=== PATIENT | female | born 2000 | race Caucasian/White ===

== ENCOUNTER → 2023-05-04 11:57 | Outpatient (REF) | payer OTHER, SELFPAY | LOC: RAD 11:57 | PROVIDERS: ATTENDING PHYSICIAN Physician Assistant Medical | DX: M25.572 Pain in left ankle and joints of left foot (principal) | CPT/HCPCS: 73610 ==

== ENCOUNTER → 2023-07-15 13:21 | Outpatient (REF) | payer OTHER, SELFPAY | LOC: RCS 13:21 | PROVIDERS: ATTENDING PHYSICIAN Nurse Practitioner Family; FAMILY PHYSICIAN Family Medicine | DX: R00.2 Palpitations (principal) | CPT/HCPCS: 93225; 93226 ==

== ENCOUNTER → 2023-07-31 13:17 | Outpatient (REF) | payer OTHER, SELFPAY | LOC: RAD 13:17 | PROVIDERS: ATTENDING PHYSICIAN Nurse Practitioner Family | DX: R76.8 Other specified abnormal immunological findings in serum (principal) | CPT/HCPCS: 76536 ==

== ENCOUNTER 2023-10-23 08:02 | Emergency (ER) | payer OTHER, SELFPAY ==
[2023-10-23 08:04] VITALS: BP 155/98
[2023-10-23 08:21] VITALS: BMI 42.0
[2023-10-23] MEDS: NSS 1000 IV (08:37)
[2023-10-23] MEDS: BENADRYL 25 MG IV (08:38)
[2023-10-23] MEDS: REGLAN 10 MG IV (08:40)
[2023-10-23] MEDS: TORADOL 30 MG IV (08:41)
--- NOTE | 2023-10-23 08:41 | ED.GENMED ---
History of Present Illness
General
Chief Complaint: Headache
Source: patient
Time Seen by Provider: 10/23/23 08:24
Travel History
Have you had any contact with someone who has COVID-19?: No
Do you have any symptoms of coronavirus? Fever > 100 degrees, chills, cough, shortness of breath, sore throat, loss of taste or smell, muscle aches, or headache?: No
History of Present Illness
History of Present Illness:
23-year-old female with past medical history of migraines presenting the emergency department for evaluation of migraine headache that started over the last 48 hours. Unrelieved with OTC medications as well as her prescriptive migraine abortive
therapy. No fevers or infectious symptoms. Headache is bifrontal, constant, nonradiating and typical of her usual migraine.
Past History
Past History
ED Past Medical History: Asthma and Other (Migraines)
ED Past Surgical History: Orthopedic and Other
Social History
Tobacco: Non-smoker
Alcohol: None
Drug: None
Personal: Single
Living: with family
Employment: Employed
Review of Systems
Review of Systems
All Other Systems: ROS reviewed and negative except as documented in HPI and ROS
Phy Exam
Physical Exam
Physical Exam:
GENERAL: Alert , in no apparent distress
EYE: conjunctiva clear Pupils 3 mm bilateral regular
Head: Normocephalic atraumatic
NECK: Supple,
ENT: mmm.
LUNGS: no acute respiratory distress
NEUROLOGICAL: Alert and oriented, ambulating with steady gait
SKIN: Warm and dry, skin intact.
MUSCULOSKELETAL: well perfused.
PSYCH: Normal and appropriate interaction.
Scores
Heart Failure Risk
Heart Failure Risk Score: Not Applicable
Heart Score for Chest Pain Patients
STEMI patient?: Not applicable
Withdrawal Assessment of Alcohol
Withdrawal Assessment Completed?: Not applicable
Course
Orders/Labs/Results
Orders:
Orders
10/23/23 08:15
Test Result ONCE
10/23/23 08:28
0.9% Sodium Chloride 1000 ml [Nss] 1,000 ml IV BOLUS
Diphenhydramine [Benadryl] 25 mg IV NOW STA
Ketorolac [Toradol] 30 mg IV NOW STA
Metoclopramide [Reglan] 10 mg IV NOW STA
10/23/23 08:25
10/23/23 08:25
Vital Signs
Initial and Last Documented VS:
Initial Vital Signs
Temp Pulse Resp BP Pulse Ox
97.9 F 98 18 155/98 100
10/23/23 08:04 10/23/23 08:04 10/23/23 08:04 10/23/23 08:04 10/23/23 08:04
Last Documented Vital Signs
Temp Pulse Resp BP Pulse Ox
97.9 F 90 18 117/78 98
10/23/23 08:04 10/23/23 09:52 10/23/23 09:52 10/23/23 09:10 10/23/23 09:52
MDM/Problems Addressed
Differential Diagnosis Includes:
Migraine headache, tension headache, no concern for intracranial bleeding
MDM/Problems Addressed:
23-year-old female presenting to the emergency department for evaluation of migraine headache, history of similar in the past. Has been seen in this ER for migraine headache before noting relief with medications and IV fluids. No signs or symptoms
of infectious etiology. No acute or focal neurologic symptoms. Based off record review she has done well with Reglan, Benadryl and Toradol in the past. Will trial this medication and reassess following.
Chronic conditions affecting care: Neurological disorder
Acute Exacerbation and/or Progression of Chronic Illness: Neurological disorder (Migraine headache)
*Pulse Oximetry
Patient hypoxic: no
*Critical Care Note
Total Time (30-74mins, 75-104mins- exclusive of procedures): Not Applicable
Data Reviewed
Review of Other/Old Records Reveals: Records
Patient Management
Escalation/DeEscalation of care consider admission/obs:
Patient reporting full resolution of symptoms and would like to be discharged home. Aware of return precautions to ER.
ED Attending Note
-
Portions of this chart may have been created with voice recognition software.� Occasional wrong word or��sound alike� substitutions may have occurred due to the inherent limitations of voice recognition software.
Discharge Plan
Departure
Patient Disposition: Home (Routine Discharge)
Date of Disposition: 10/23/23
Time of Disposition: 09:15
Patient with high blood pressure during this ER visit?: Yes
Discharge Problem:
Headache, migraine
Instructions: Migraines (DC)
Prescriptions:
No Action
albuterol sulfate 1 PUFF HFA aerosol inhaler
1 puff inhalation R Q4HPRN PRN (Reason: asthma)
fexofenadine [Madyson] 180 MG tablet
180 mg PO DAILY
fluticasone propionate 1 SPRAY spray,suspension
2 spray intranasal DAILY
mometasone [Asmanex HFA] 13 GM HFA aerosol inhaler
2 puff inhalation BID
ondansetron 4 MG tablet,disintegrating
4 mg PO Q8HPRN PRN (Reason: nausea) Qty: 5 1RF
hydrocodone-acetaminophen 15 ML solution
15 - 30 ml PO Q4HPRN PRN (Reason: pain) Qty: 12 0RF
ondansetron 4 mg tablet,disintegrating
4 mg PO DAILY PRN (Reason: nausea and vomiting) Qty: 10 0RF
hydrocodone-acetaminophen 5-325 mg tablet
1 tab PO Q6H PRN (Reason: pain) Qty: 8 0RF
Referrals:
Fiona Oropeza MD [Family Provider] -
Interventions
Interventions:
*Risk Screen - Suicide Last Done: 10/23/23 08:11
*General Assessment Last Done: 10/23/23 08:21
*Neglect/Abuse Screening Last Done: 10/23/23 08:11
ED- Fall Risk Assessment Last Done: 10/23/23 09:55
*ED COVID-19 Vaccine History Last Done: 10/23/23 08:11
*Nursing Disposition Last Done: 10/23/23 09:55
ED- Neurological Assessment Last Done: 10/23/23 08:21
Discharge Date and Time
Discharge Date/Time: 10/23/23 09:56
Print Language: BELARUSIAN
[2023-10-23 09:10] VITALS: BP 117/78
== END 2023-10-23 09:56 | disposition home or self-care (01) ==
LOC: EMR 08:02
PROVIDERS: EMERGENCY PHYSICIAN Emergency Medicine; FAMILY PHYSICIAN Family Medicine
DX: G43.909 Migraine, unspecified, not intractable, without status migrainosus (principal); J45.909 Unspecified asthma, uncomplicated
CPT/HCPCS: 99282; 96374; 96375; 96361

== ENCOUNTER 2024-07-28 21:02 | Emergency (ER) | payer OTHER, SELFPAY ==
[2024-07-28 21:06] VITALS: BP 143/93
[2024-07-28 21:29] LABS: Urine Albumin Negative (Neg - Trace); Urine Bilirubin Negative (Negative); Urine Character Cloudy (Clear); Urine Color Yellow; Urine Glucose Negative (Negative); Urine Ketone Negative (Negative); Urine Leukocyte Negative (Negative); Urine Nitrite Negative (Negative); Urine Occult Blood 2+ (Negative); Urine Specific Gravity 1.015 (<1.030); Urine Urobilinogen Negative (Neg - 1+)
[2024-07-28 21:36] LABS: % Basophils 0.4 % (0-2); % Eosinophils 0.5 % (0-6); % Immature Granulocytes 0.4 % (0-0.5); % Lymphocytes 23.7 % (20.5-51.1); Absolute Monocytes 0.7 10^3/uL (0.1-0.6); Absolute Neutrophils 5.7 10^3/uL (1.4-6.5); Hematocrit 42.8 % (37.0-47.0); Hemoglobin 14.8 g/dL (12.0-16.0); Mean Corp Hgb Conc. 34.6 g/dL (33.0-37.0); Mean Corpuscular Hgb 30.3 pg (27.0-31.0); Mean Corpuscular Volume 87.5 fL (81.0-99.0); Mean Platelet Volume 9.4 fL (7.4-10.4); Nucleated Red Blood Cells % 0 %; Platelet Count 291 10^3/uL (130-400); Red Blood Cell Count 4.89 10^6/uL (4.20-5.40); Red Cell Dist. Width 12.3 % (11.5-14.5); White Blood Cell Count 8.5 10^3/uL (4.8-10.8)
[2024-07-28 21:40] LABS: Urine Amorphous Seen; Urine Squamous Cell 0-2 /LPF (Few); Urine White Cell 0-2 /HPF (0-5)
[2024-07-28 21:41] LABS: HCG, Serum Qualitative Screen Negative; Urine Bacteria Many (Negative)
[2024-07-28 21:45] LABS: ALT (SGPT) 14 U/L (0-35); AST (SGOT) 16 U/L (14-36); Albumin 4.4 g/dl (3.5-5.0); Alkaline Phosphatase 109 U/L (38-126); Blood Urea Nitrogen 11 mg/dl (7-17); Calcium 9.2 mg/dl (8.4-10.2); Carbon Dioxide 21 mmol/L (22-30); Chloride 109 mmol/L (98-107); Glucose 98 mg/dl (70-99); Lipase 38 U/L (23-300); Potassium 3.7 mmol/L (3.5-5.1); Sodium 138 mmol/L (135-145); Total Bilirubin 0.4 mg/dl (0.2-1.3); Total Protein 6.9 g/dl (6.3-8.2); eGFR > 60.00
[2024-07-28 21:52] VITALS: BMI 40.2
--- NOTE | 2024-07-28 22:48 | ED.GENMED ---
History of Present Illness
General
Chief Complaint: Abdominal Pain
Source: patient
Exam Limitations: none
Time Seen by Provider: 07/28/24 22:39
Nursing documentation reviewed up to this point in time: agreed with
History of Present Illness
History of Present Illness:
Pleasant 23-year-old female presents to the emergency department with periumbilical and right lower quadrant abdominal pain. Pain began yesterday and has been waxing waning throughout the day today. She did report some nausea without vomiting.
She had a normal bowel movement this morning without issue. She states that she does not get her menses and has not noticed any blood in her urine. Denies fever or chills. She does have a history of irritable bowel syndrome and PCOS, along with
ovarian cysts. She states that this does not feel similar to any of those.
Past History
Past History
ED Past Medical History: Asthma and Other (Migraines)
ED Past Surgical History: Orthopedic and Other
Social History
Tobacco: Non-smoker
Alcohol: None
Drug: None
Personal: Single
Living: with family
Employment: Employed
Review of Systems
Review of Systems
Allergies reviewed?: Yes
All Other Systems: ROS reviewed and negative except as documented in HPI and ROS
ABD/GI: Reports abdominal pain and nausea; Denies vomiting, diarrhea, constipated or bloody stools
Psychiatric: Reports anxiety
Phy Exam
General Physical Exam
General Presentation: well appearing and mild distress
General age: appears stated age
General Skin: warm
General Habitus: normal
General Mental: alert
General Hydration: appears well hydrated
ENT Exam
ENT Exam: EOMI, pharynx normal, neck supple and normocephalic
Eye Exam
Eye Exam: PERRL, cornea clear and conjunctiva normal
Cardiovascular Exam
Cardiovascular Exam: regular rate/rhythm, no edema, no murmur and normal peripheral pulses
Pulmonary Exam
Pulmonary Exam: lungs clear, no respiratory distress, no rales, no crackles, no rhonchi, no stridor, no wheezing and no cough
Gastrointestinal Exam
Gastrointestinal Exam: normal bowel sounds, no organomegaly, non distended and rebound
Palpation: right lower quadrant: Mild tenderness
Neurological Exam
Neurological Exam: alert, oriented x3, no motor deficits and speech normal
Musculoskeletal Exam
Musculoskeletal Exam: full ROM and no edema
Skin Exam
Skin Exam: normal color, warm/dry, no rash and no petechia
Psychiatric Exam
Psychiatric Exam: normal mood/affect
Course
Orders/Labs/Results
Orders:
Orders
07/28/24 21:08
IV Insert/Care/Rem.- Treatment PRN
Test Result ONCE
07/28/24 21:22
Complete Blood Count/With Diff Urgent
Comprehensive Metabolic Panel Urgent
HCG, Serum Qualitative Screen Urgent
Lipase Urgent
Urinalysis Reflex To Culture Urgent
Date Specimen was Collected: 07/28/24
Time Specimen was Collected: 21:08
Urine Microscopic Reflex Cult Urgent
Urine Culture Urgent
BERTIN Source: U
Specimen Description:
Date Specimen was Collected: 07/28/24
Time Specimen was Collected: 21:08
07/28/24 22:48
CT Abd/pelvis W Iv Cont Urgent
Comment:
Reason For Exam: periumbilical and RLQ pain
07/28/24 23:40
Ketorolac [Toradol] 15 mg .ROUTE .STK-MED ONE
Ondansetron Injectable [Zofran] 4 mg .ROUTE .STK-MED ONE
07/28/24 23:41
Ketorolac [Toradol] 15 mg IV NOW STA
Ondansetron Injectable [Zofran] 4 mg IV NOW STA
07/29/24 00:00
0.9% Sodium Chloride 1000 ml [Nss] 1,000 ml IV BOLUS
US Pelvis Only (non-obstetric) Urgent
Reason For Exam: right pelvic pain
Abnormal Lab Results
07/28/24
21:22
Absolute Monos (auto) 0.7 H 10^3/uL
(0.1-0.6)
Chloride 109 H mmol/L
(98-107)
Carbon Dioxide 21 L mmol/L
(22-30)
Ur Occult Blood Reflex 2+ A
(Negative)
Urine RBC 11-15 A /HPF
(0-2)
Urine Bacteria (Reflex) Many A
(Negative)
07/28/24 21:22
07/28/24 21:22
Vital Signs
Initial and Last Documented VS:
Initial Vital Signs
Temp Pulse Resp BP Pulse Ox
97.7 F 116 19 143/93 99
07/28/24 21:06 07/28/24 21:06 07/28/24 21:06 07/28/24 21:06 07/28/24 21:06
Last Documented Vital Signs
Temp Pulse Resp BP Pulse Ox
97.7 F 93 19 146/86 99
07/28/24 21:06 07/28/24 23:45 07/28/24 23:28 07/28/24 23:45 07/28/24 23:45
MDM/Problems Addressed
Differential Diagnosis Includes:
Appendicitis, kidney stone, UTI, pyelonephritis, gastroenteritis
*Pulse Oximetry
Patient hypoxic: no
Patient Management
Social determinants of health affecting care: Living situation and Strong social support
Update Note
Update Note:
CT ABDOMEN/PELVIS WITH CONTRAST
IMPRESSION:
1. Right ovarian cyst measuring 5.3 x 3.5 cm.
2. Fecalized loops of small bowel suggestive of slow transit. No bowel obstruction. Normal gallbladder and appendix.
Incidentals:
-Normal-appearing intrauterine device
- No obstructive uropathy. Again seen is left renal cyst, with likely layering milk of calcium. Harsh kidney.
- No hepatic or pancreatic mass.
- No abdominal aortic aneurysm.
- No acute osseous abnormality.
- No acute abnormality within the visualized lungs.
- No acute abnormality within the visualized soft tissues.
Case finalized on Jul 28 2024 11:47PM ET
ED Attending Note
-
Portions of this chart may have been created with voice recognition software.� Occasional wrong word or��sound alike� substitutions may have occurred due to the inherent limitations of voice recognition software.
Discharge Plan
Departure
Patient with high blood pressure during this ER visit?: Yes
Condition: Good
Discharge Problem:
Ovarian cyst
Instructions: Ovarian Cyst (DC), Abdominal Pain
Prescriptions:
New
diclofenac sodium 75 mg tablet,delayed release (DR/EC)
75 mg PO BID Qty: 10 0RF
No Action
albuterol sulfate 1 PUFF HFA aerosol inhaler
1 puff inhalation R Q4HPRN PRN (Reason: asthma)
fexofenadine [Madyson] 180 MG tablet
180 mg PO DAILY
fluticasone propionate 1 SPRAY spray,suspension
2 spray intranasal DAILY
mometasone [Asmanex HFA] 13 GM HFA aerosol inhaler
2 puff inhalation BID
ondansetron 4 MG tablet,disintegrating
4 mg PO Q8HPRN PRN (Reason: nausea) Qty: 5 1RF
hydrocodone-acetaminophen 15 ML solution
15 - 30 ml PO Q4HPRN PRN (Reason: pain) Qty: 12 0RF
ondansetron 4 mg tablet,disintegrating
4 mg PO DAILY PRN (Reason: nausea and vomiting) Qty: 10 0RF
hydrocodone-acetaminophen 5-325 mg tablet
1 tab PO Q6H PRN (Reason: pain) Qty: 8 0RF
Referrals:
Fiona Oropeza MD [Family Provider] -
Activity Restrictions/Additional Instructions:
It was a pleasure meeting you and taking part in your care. We hope for your continued healing and wellness.
Please read discharge instructions in their entirety. However, they are for general education and may not describe your exact diagnosis at discharge. Information on your ER visit and medical conditions were discussed with you along with appropriate
follow up information...
If indicated, please take your medications as instructed and indicated on discharge paperwork.
Please schedule a follow up appointment as directed. Call to schedule an appointment
Please return to the emergency department with ANY change in, persisting, or worsening of symptoms. If any of your symptoms do not improve, or persist, or become more severe within 6-12 hours, please return to the emergency department for further
care.
Please return to the emergency department if you develop a headache, neck pain/stiffness, fever greater than 100.4F, chest pain, shortness of breath, persistent nausea, vomiting, slurred speech, difficulty walking, numbness/tingling, weakness, signs
of infection or any other symptoms that are worrisome to you.
If you have any questions or concerns please do not hesitate to call the Hospital at or E-mail me directly at [email or web address]
Interventions
Interventions:
*Risk Screen - Suicide Last Done: 07/28/24 21:06
*General Assessment Last Done: 07/28/24 23:25
*Neglect/Abuse Screening Last Done: 07/28/24 21:06
*ED- Fall Risk Assessment Last Done: 07/28/24 21:52
*ED COVID-19 Vaccine History Last Done: 07/28/24 21:52
BZ-Qvqtxz-Wgsvshbmly Assessment Last Done: 07/28/24 21:52
Discharge Date and Time
Print Language: PORTUGUESE
[2024-07-28] MEDS: ZOFRAN 4 MG IV (23:42)
[2024-07-28] MEDS: TORADOL 15 MG IV (23:42)
[2024-07-28 23:45] VITALS: BP 146/86
[2024-07-29] MEDS: NSS 1000 IV
--- NOTE | 2024-07-29 04:29 | DOWNTIME ---
There was a [employer] Client [employer] Setter Downtime on 07/29/2024 from 0100 to 07/30/2023 at 0420 . Downtime documentation of patient's care, including medication administrations, has been reconciled in the electronic record per guidelines. Refer to the
patient's paper chart under the miscellaneous tab to see printed paper medication records and downtime forms.
== END 2024-07-29 02:15 | disposition home or self-care (01) ==
LOC: EMR 21:02
PROVIDERS: Emergency Medicine; EMERGENCY PHYSICIAN Student in an Organized Health Care Education/Training Program; FAMILY PHYSICIAN Family Medicine
DX: R10.2 Pelvic and perineal pain (principal); R10.31 Right lower quadrant pain; R11.0 Nausea; N83.201 Unspecified ovarian cyst, right side; N28.1 Cyst of kidney, acquired; E28.2 Polycystic ovarian syndrome; F41.9 Anxiety disorder, unspecified; J45.909 Unspecified asthma, uncomplicated; G43.909 Migraine, unspecified, not intractable, without status migrainosus; K58.9 Irritable bowel syndrome, unspecified; E05.00 Thyrotoxicosis with diffuse goiter without thyrotoxic crisis or storm; Z91.040 Latex allergy status; Z91.013 Allergy to seafood; Z91.018 Allergy to other foods; Z91.048 Other nonmedicinal substance allergy status
CPT/HCPCS: 99284; 96375; 96361; 96374; 74177; 76856; 80053; 81003; 81015; 83690; 84703; 85025; 87086; Q9967

== ENCOUNTER → 2024-09-23 08:27 | Outpatient (REF) | payer OTHER, SELFPAY | LOC: HWRAD 08:27 | PROVIDERS: ATTENDING PHYSICIAN Nurse Practitioner Family; FAMILY PHYSICIAN Family Medicine | DX: N83.201 Unspecified ovarian cyst, right side (principal) | CPT/HCPCS: 76830; 76856 ==

== ENCOUNTER 2024-11-15 12:53 | Emergency (ER) | payer OTHER, SELFPAY ==
[2024-11-15 13:09] VITALS: BP 128/79
[2024-11-15 13:49] LABS: ALT (SGPT) 24 U/L (0-35); AST (SGOT) 25 U/L (14-36); Albumin 4.2 g/dl (3.5-5.0); Alkaline Phosphatase 107 U/L (38-126); Blood Urea Nitrogen 9 mg/dl (7-17); Calcium 9.3 mg/dl (8.4-10.2); Carbon Dioxide 18 mmol/L (22-30); Chloride 115 mmol/L (98-107); Glucose 107 mg/dl (70-99); Potassium 4.1 mmol/L (3.5-5.1); Sodium 140 mmol/L (135-145); Total Protein 6.8 g/dl (6.3-8.2); eGFR > 60.00
[2024-11-15 17:20] LABS: HCG, Serum Qualitative Screen Negative
--- NOTE | 2024-11-15 17:29 | ED.GENMED ---
History of Present Illness
<Pam Martin PA-C - Last Filed: 11/17/24 06:43>
General
Chief Complaint: Fever
Source: patient
Exam Limitations: none
Time Seen by Provider: 11/15/24 16:03
Nursing documentation reviewed up to this point in time: agreed with
History of Present Illness
History of Present Illness:
24 y/o F
h/o migraines, asthma, PCOS, UTIs
here with fever x 5 days
treated with tylenol/motrin
started on 11/11 with lowr back pain and chills
has had persistent but improving lower back pain and then onset of headache which gets worse when she has fever
last temp was 101 at 12 noon
took tylenol/;motrin which helps
says that on 11/07 she was exposed briefly to a teen patient with meningitits
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
she was around the patient < 5 minutes without N95 and then involve din assisting LP
the patient apparently is doing wlel
had already been on abx for sinus infection
pt doesn' tknow what grew out on the cultures; sounds as if they were neg; ID was involved and decided that none of the staff needed prophylaxis
on 11/12 she went to and they said she had a viral illness, was given ear drops for OE
pt says she no longer is using th eear drops
she has minimal 2/10 headache, no neck stiffness
some myaglais and joitn pain
no rash, no vomiting, no diarrhea, no cough
Past History
<Pam Martin PA-C - Last Filed: 11/17/24 06:43>
Past History
ED Past Medical History: Asthma and Other (Migraines)
ED Past Surgical History: Orthopedic and Other
Social History
Tobacco: Non-smoker
Alcohol: None
Drug: None
Personal: Single
Living: with family
Employment: Employed
Review of Systems
<Pam Martin PA-C - Last Filed: 11/17/24 06:43>
Review of Systems
Allergies reviewed?: Yes
All Other Systems: Not applicable
Phy Exam
<Pam Martin PA-C - Last Filed: 11/17/24 06:43>
Physical Exam
Physical Exam:
GENERAL: Alert , in no apparent distress, well appearing
HEAD: NCAT
EYE: pupils equal and reactive, no nystagmus, minimal photophobia
NECK: Supple,full rom, nontender, neg kernigs, neg brudzinskis
ENT: o/p clr, mmm.
mild pharyngeal erythema
no palatal petechia
Ears clear
CARDIAC: Regular rate and rhythm . no edema
LUNGS: Clear breath sounds bilaterally, no acute respiratory distress, no wheezes/rales/rhonchi
ABDOMEN: Soft, without focal tenderness, no r/g, no cvat
NEUROLOGICAL: Alert and orientedx 4, cn intact, no facial asymmetry, 5/5 strength in UE/LE, sensation intact, romberg neg, ambulates without assistance, neg pronator drift
SKIN: Warm and dry, skin intact.
MUSCULOSKELETAL: No edema, well perfused.
PSYCH: Normal and appropriate interaction.
Course
<Pam Martin PA-C - Last Filed: 11/17/24 06:43>
Orders/Labs/Results
Orders:
Orders
11/15/24 13:19
Comprehensive Metabolic Panel Urgent
HCG, Serum Qualitative Screen Urgent
Comment: ADD ON
Lyme Progressive Urgent
Comment: ADD ON
Monotest Urgent
Comment: ADD ON
11/15/24 16:29
Add On- LAB Urgent
Tests Added?: mono
0.9% Sodium Chloride 1000 ml [Nss] 1,000 ml IV BOLUS
Diphenhydramine [Benadryl] 25 mg IV NOW STA
Metoclopramide [Reglan] 10 mg IV NOW STA
11/15/24 16:30
Add On- LAB Urgent
Tests Added?: hcg qual
11/15/24 17:29
CT Head W/o Iv Contrast Urgent
Comment:
Reason For Exam: headache
11/15/24 17:34
COVID-19 Antigen Urgent
Source: Nasal Swab
Complete Blood Count/With Diff Urgent
Comment: PREVIOUS CLOTTED
Urinalysis Reflex To Culture Urgent
Date Specimen was Collected: 11/15/24
Time Specimen was Collected: 17:32
Urine Microscopic Reflex Cult Urgent
Blood Culture Q30M
BERTIN Source: Blood/Venous
Specimen Description:
Influenza A+B Rapid Molecular Urgent
BERTIN Source: Nasal Swab
Specimen Description:
Rapid Strep Group A Urgent
BERTIN Source: Throat/Pharynx
Specimen Description:
Date Specimen was Collected: 11/15/24
Time Specimen was Collected: 17:32
11/15/24 18:57
CR Chest - 2 Views Urgent
Comment:
Reason For Exam: fever
11/15/24 19:03
0.9% Sodium Chloride 1000 ml [Nss] 1,000 ml IV BOLUS
Acetaminophen [Tylenol] 1,000 mg PO NOW STA
Ketorolac [Toradol] 30 mg IV NOW STA
11/15/24 19:37
Blood Culture Q30M
BERTIN Source: Blood/Venous
Specimen Description:
11/15/24 20:04
Add On- LAB Urgent
Tests Added?: lyme progressive
11/15/24 20:21
CefTRIAXone [Rocephin] 1,000 mg IV NOW STA
Abnormal Lab Results
11/15/24 11/15/24
13:19 17:34
Absolute Monos (auto) 0.9 H 10^3/uL
(0.1-0.6)
Lymphocytes % 17.4 L %
(20.5-51.1)
Monocytes % 10.4 H %
(1.7-9.3)
Chloride 115 H mmol/L
(98-107)
Carbon Dioxide 18 L mmol/L
(22-30)
Glucose 107 H mg/dl
(70-99)
Urine Ketones 3+ A
(Negative)
Urine Albumin (Reflex) 1+ A
(Neg - Trace)
11/15/24 17:34
11/15/24 13:19
Vital Signs
Initial and Last Documented VS:
Initial Vital Signs
Temp Pulse Resp BP Pulse Ox
36.9 C 94 16 128/79 98
11/15/24 13:09 11/15/24 13:09 11/15/24 13:09 11/15/24 13:09 11/15/24 13:09
Last Documented Vital Signs
Temp Pulse Resp BP Pulse Ox
37.9 C 99 18 141/82 99
11/15/24 19:03 11/15/24 20:00 11/15/24 20:00 11/15/24 20:00 11/15/24 20:00
<Nate Wilson, DO - Last Filed: 11/15/24 17:44>
Orders/Labs/Results
Orders:
Orders
11/15/24 13:19
Comprehensive Metabolic Panel Urgent
HCG, Serum Qualitative Screen Urgent
Comment: ADD ON
Lyme Progressive Urgent
Comment: ADD ON
Monotest Urgent
Comment: ADD ON
11/15/24 16:29
Add On- LAB Urgent
Tests Added?: mono
0.9% Sodium Chloride 1000 ml [Nss] 1,000 ml IV BOLUS
Diphenhydramine [Benadryl] 25 mg IV NOW STA
Metoclopramide [Reglan] 10 mg IV NOW STA
11/15/24 16:30
Add On- LAB Urgent
Tests Added?: hcg qual
11/15/24 17:29
CT Head W/o Iv Contrast Urgent
Comment:
Reason For Exam: headache
11/15/24 17:34
COVID-19 Antigen Urgent
Source: Nasal Swab
Complete Blood Count/With Diff Urgent
Comment: PREVIOUS CLOTTED
Urinalysis Reflex To Culture Urgent
Date Specimen was Collected: 11/15/24
Time Specimen was Collected: 17:32
Urine Microscopic Reflex Cult Urgent
Blood Culture Q30M
BERTIN Source: Blood/Venous
Specimen Description:
Influenza A+B Rapid Molecular Urgent
BERTIN Source: Nasal Swab
Specimen Description:
Rapid Strep Group A Urgent
BERTIN Source: Throat/Pharynx
Specimen Description:
Date Specimen was Collected: 11/15/24
Time Specimen was Collected: 17:32
11/15/24 18:57
CR Chest - 2 Views Urgent
Comment:
Reason For Exam: fever
11/15/24 19:03
0.9% Sodium Chloride 1000 ml [Nss] 1,000 ml IV BOLUS
Acetaminophen [Tylenol] 1,000 mg PO NOW STA
Ketorolac [Toradol] 30 mg IV NOW STA
11/15/24 19:37
Blood Culture Q30M
BERTIN Source: Blood/Venous
Specimen Description:
11/15/24 20:04
Add On- LAB Urgent
Tests Added?: lyme progressive
11/15/24 20:21
CefTRIAXone [Rocephin] 1,000 mg IV NOW STA
Abnormal Lab Results
11/15/24 11/15/24
13:19 17:34
Absolute Monos (auto) 0.9 H 10^3/uL
(0.1-0.6)
Lymphocytes % 17.4 L %
(20.5-51.1)
Monocytes % 10.4 H %
(1.7-9.3)
Chloride 115 H mmol/L
(98-107)
Carbon Dioxide 18 L mmol/L
(22-30)
Glucose 107 H mg/dl
(70-99)
Urine Ketones 3+ A
(Negative)
Urine Albumin (Reflex) 1+ A
(Neg - Trace)
11/15/24 17:34
11/15/24 13:19
Vital Signs
Initial and Last Documented VS:
Initial Vital Signs
Temp Pulse Resp BP Pulse Ox
36.9 C 94 16 128/79 98
11/15/24 13:09 11/15/24 13:09 11/15/24 13:09 11/15/24 13:09 11/15/24 13:09
Last Documented Vital Signs
Temp Pulse Resp BP Pulse Ox
37.9 C 99 18 141/82 99
11/15/24 19:03 11/15/24 20:00 11/15/24 20:00 11/15/24 20:00 11/15/24 20:00
<Pam Martin PA-C - Last Filed: 11/17/24 06:43>
MDM/Problems Addressed
Differential Diagnosis Includes:
bacteremia, viral syndrome, mono, lyme, strep, less likely meningitis
MDM/Problems Addressed:
24-year-old healthy female presents for day 5 of fever, which is also started with some lower back ache and generalized myalgias and fatigue. She also has a headache which is never severe. It is global and 2 out of 10 currently. Patient's temp
goes up to 101 or 102 which she will treat with Tylenol and ibuprofen and then it was not resolved. She just darted having a mild sore throat today. She was not exposed to mononucleosis that she knows of. Patient was exposed to a patient who
ended up having what she thinks was bacterial meningitis however it sounds like the cultures did not grow out anything. She works at [employer] where they had a ID consultation for the employees and decided that nobody needed prophylaxis. This probably
means that it was not Neisseria meningitidis.
Patient probably more coincidentally started with the symptoms a couple of days later. On exam she was afebrile initially, had mild pharyngeal erythema, no significant large lymph nodes in her anterior cervical chain, full range of motion of her
neck without any stiffness, mild headache, no strawberry tongue, no conjunctivitis. Patient's abdomen was soft and nontender and her lungs are clear. She has no rash. She was seen by ED attending who agreed that she is not having any meningismal
signs.
Consider that she could have viral meningitis
We did consider lumbar puncture but at this point given reassuring exam and labs we did not feel like it was clinically relevant. Patient did have head CT per family request which was negative. Her white count is normal, mono negative, strep
negative, COVID and flu negative, UA just ketones, LFTs normal, chest x-ray independently reviewed by me and negative to give her a dose of IV Rocephin, send to cultures for blood and discharge home cefdinir. Hopefully this is not mononucleosis and
she will not get a mono rash.
<Pam Martin PA-C - Last Filed: 11/17/24 06:43>
*Pulse Oximetry
SaO2: 98
Oxygen Mode of Delivery: Room air
Patient hypoxic: no (99)
*Critical Care Note
Total Time (30-74mins, 75-104mins- exclusive of procedures): Not Applicable
ED Attending Note
<Pam Martin PA-C - Last Filed: 11/17/24 06:43>
-
Portions of this chart may have been created with voice recognition software.� Occasional wrong word or��sound alike� substitutions may have occurred due to the inherent limitations of voice recognition software.
<Nate Wilson, DO - Last Filed: 11/15/24 17:44>
ED Attending Note
Patient seen and examined by attending physician: Yes
I performed the substantive portion of visit, reviewed & personally made and approve the management plan that is documented in note by myself or NIELS.: Yes
ED Attending Note:
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
ER patient at [facility] [place] [facility] had a sinus infection has been on antibiotics visit LP was positive for bacterial infection infection control apparently said that the patient did not require antibiotics
Few days after this, Bonita developed headache fever back pain chills no rash
Discharge Plan
Departure
Patient Disposition: Home (Routine Discharge)
Date of Disposition: 11/15/24
Time of Disposition: 20:19
Patient with high blood pressure during this ER visit?: No
Condition: Fair
Covid-19: Not Applicable
Discharge Problem:
Fever
Instructions: Fever, Adult (DC)
Prescriptions:
New
cefdinir 300 mg capsule
300 mg PO BID Qty: 14 0RF
No Action
albuterol sulfate 1 PUFF HFA aerosol inhaler
1 puff inhalation R Q4HPRN PRN (Reason: asthma)
fexofenadine [Madyson] 180 MG tablet
180 mg PO DAILY
fluticasone propionate 1 SPRAY spray,suspension
2 spray intranasal DAILY
mometasone [Asmanex HFA] 13 GM HFA aerosol inhaler
2 puff inhalation BID
ondansetron 4 MG tablet,disintegrating
4 mg PO Q8HPRN PRN (Reason: nausea) Qty: 5 1RF
hydrocodone-acetaminophen 15 ML solution
15 - 30 ml PO Q4HPRN PRN (Reason: pain) Qty: 12 0RF
ondansetron 4 mg tablet,disintegrating
4 mg PO DAILY PRN (Reason: nausea and vomiting) Qty: 10 0RF
hydrocodone-acetaminophen 5-325 mg tablet
1 tab PO Q6H PRN (Reason: pain) Qty: 8 0RF
diclofenac sodium 75 mg tablet,delayed release (DR/EC)
75 mg PO BID Qty: 10 0RF
Referrals:
Fiona Oropeza MD [Family Provider, [facility]] - Follow up in 2-3 days
Stand Alone Forms: Return to Work
Activity Restrictions/Additional Instructions:
Are unsure what the source of your fever is. Your workup here was reassuring and you had no neck stiffness to be concerned at this point for meningitis. He will give you a dose of IV antibiotics here pending your blood cultures and send you home
on cefdinir twice a day.
Please watch for worsening symptoms like severe headache, neck stiffness, rash, lethargy, vomiting. If you are having fevers past 24 to 48 hours on antibiotics he may need to be reevaluated. We will call you if your blood cultures are positive.
Interventions
Interventions:
*Risk Screen - Suicide Last Done: 11/15/24 13:09
*General Assessment Last Done: 11/15/24 13:09
*Neglect/Abuse Screening Last Done: 11/15/24 13:09
*ED- Fall Risk Assessment Last Done: 11/15/24 17:58
*ED COVID-19 Vaccine History Last Done: 11/15/24 17:54
*Nursing Disposition Last Done: 11/15/24 20:30
ED- Neurological Assessment Last Done: 11/15/24 17:56
ED-Skin Assessment Last Done: 11/15/24 17:55
Discharge Date and Time
Discharge Date/Time: 11/15/24 20:30
Print Language: BARBADIAN
[2024-11-15 17:41] VITALS: BMI 40.2
[2024-11-15] MEDS: NSS 1000 IV ×2 (17:44→19:30)
[2024-11-15] MEDS: REGLAN 10 MG IV (17:45)
[2024-11-15] MEDS: BENADRYL 25 MG IV (17:45)
[2024-11-15 17:53] VITALS: BP 129/83
[2024-11-15 18:00] VITALS: BP 121/79
[2024-11-15 18:08] LABS: Hematocrit 43.5 % (37.0-47.0); Hemoglobin 14.8 g/dL (12.0-16.0); Mean Corp Hgb Conc. 34.0 g/dL (33.0-37.0); Mean Corpuscular Volume 88.4 fL (81.0-99.0); Nucleated Red Blood Cells % 0 %; Platelet Count 200 10^3/uL (130-400); Red Cell Dist. Width 12.2 % (11.5-14.5)
[2024-11-15 18:15] LABS: Urine Character Clear (Clear)
[2024-11-15 18:22] LABS: COVID-19 Antigen Negative (Negative)
[2024-11-15 18:36] LABS: Urine Squamous Cell 16-20 /LPF (Few)
[2024-11-15 18:38] LABS: Urine Red Blood Cell 0-2 /HPF (0-2)
[2024-11-15] MEDS: TYLENOL 1000 MG PO (19:28)
[2024-11-15] MEDS: TORADOL 30 MG IV (19:29)
[2024-11-15 20:00] VITALS: BP 141/82
[2024-11-15] MEDS: ROCEPHIN 1000 MG IV (20:28)
[2024-11-16 13:59] LABS: Lyme Antibody Screen, EIA Negative (Negative)
== END 2024-11-15 20:30 | disposition home or self-care (01) ==
LOC: EMR 12:53
PROVIDERS: Emergency Medicine; Physician Assistant; EMERGENCY PHYSICIAN Emergency Medicine; FAMILY PHYSICIAN Family Medicine
DX: R50.9 Fever, unspecified (principal); M54.50 Low back pain, unspecified; J02.9 Acute pharyngitis, unspecified; M79.10 Myalgia, unspecified site; G43.909 Migraine, unspecified, not intractable, without status migrainosus; Z11.52 Encounter for screening for COVID-19; Z20.89 Contact with and (suspected) exposure to other communicable diseases; E28.2 Polycystic ovarian syndrome; J45.909 Unspecified asthma, uncomplicated; K58.9 Irritable bowel syndrome, unspecified; E05.00 Thyrotoxicosis with diffuse goiter without thyrotoxic crisis or storm; Z87.440 Personal history of urinary (tract) infections; Z91.040 Latex allergy status; Z91.013 Allergy to seafood; Z91.018 Allergy to other foods; Z91.048 Other nonmedicinal substance allergy status
CPT/HCPCS: 99284; 96374; 96375 ×3; 96361 ×2; 70450; 71046; 80053; 81003; 81015; 84703; 85025; 86308; 86618; 87040; 87070; 87502; 87811; 87880